=== PATIENT | female | born 1950 | race Caucasian/White ===

== ENCOUNTER 2021-12-13 09:58 | Outpatient (CLI) | payer MEDICARE, BC | END 2021-12-13 09:59 | disposition home or self-care (01) | LOC: CSHMAMMO 09:58 | PROVIDERS: ATTEND Family Medicine | DX: Z12.31 Encounter for screening mammogram for malignant neoplasm of breast (principal); Z85.3 Personal history of malignant neoplasm of breast; Z90.12 Acquired absence of left breast and nipple | CPT/HCPCS: 77063; 77067 ==

== ENCOUNTER 2022-12-15 10:02 | Outpatient (CLI) | payer MEDICARE, BC | END 2022-12-15 10:03 | disposition home or self-care (01) | LOC: CSHMAMMO 10:02 | PROVIDERS: ATTEND Family Medicine | DX: Z12.31 Encounter for screening mammogram for malignant neoplasm of breast (principal); M85.89 Other specified disorders of bone density and structure, multiple sites; Z90.12 Acquired absence of left breast and nipple | CPT/HCPCS: 77063; 77067; 77080 ==

== ENCOUNTER 2022-12-15 11:09 | Outpatient (CLI) | payer MEDICARE, BC | END 2022-12-15 11:10 | disposition home or self-care (01) | LOC: CSHRAD 11:09 | PROVIDERS: ATTEND Family Medicine | DX: M25.511 Pain in right shoulder (principal); M25.512 Pain in left shoulder; M25.552 Pain in left hip; M19.012 Primary osteoarthritis, left shoulder; M19.011 Primary osteoarthritis, right shoulder; M16.12 Unilateral primary osteoarthritis, left hip ==

== ENCOUNTER 2023-01-15 13:18 | Outpatient (CLI) | payer MEDICARE, BC | END 2023-01-15 13:19 | disposition home or self-care (01) | LOC: CSHULT 13:18 | PROVIDERS: ATTEND Urology | DX: N32.1 Vesicointestinal fistula (principal); N13.5 Crossing vessel and stricture of ureter without hydronephrosis | CPT/HCPCS: 76770 ==

== ENCOUNTER 2023-12-17 10:01 | Outpatient (CLI) | payer BC, MEDICARE | END 2023-12-17 10:02 | disposition home or self-care (01) | LOC: CSHMAMMO 10:01 | PROVIDERS: ATTEND Family Medicine | DX: Z12.31 Encounter for screening mammogram for malignant neoplasm of breast (principal); Z98.890 Other specified postprocedural states | CPT/HCPCS: 77063; 77067 ==

== ENCOUNTER 2024-12-18 09:59 | Outpatient (CLI) | payer MEDICARE | END 2024-12-18 10:00 | disposition home or self-care (01) | LOC: CSHMAMMO 09:59 | PROVIDERS: ATTEND Family Medicine | DX: Z12.31 Encounter for screening mammogram for malignant neoplasm of breast (principal); Z90.12 Acquired absence of left breast and nipple | CPT/HCPCS: 77063; 77067 ==